=== PATIENT | female | born 1990 | race Caucasian/White ===

== ENCOUNTER 2025-03-21 00:04 | Emergency (ER) | payer OTHER ==
[~2025-03-21] VITALS: Ht 154.9 cm; Wt 57.0 kg
[2025-03-21 00:12] VITALS: O2SAT 99
[2025-03-21] MEDS: SODIUM CHLORIDE 0.9% 1,000 ML IV ONE (00:15)
[2025-03-21 00:45] VITALS: BP 112/75; PULSE 82; RESP 14; TEMP 36.7; O2SAT 99
[2025-03-21 01:38] LABS: BASOPHILS % 0.6 % (0.0-2.0); EOSINOPHILS % 2.4 % (0.0-5.0); HEMATOCRIT. 44.7 % (36.0-48.0); HEMOGLOBIN. 15.1 g/dL (12.0-16.0); LYMPHOCYTES % 22.5 % (20.0-50.0); MEAN CORPUSCULAR HEMOGLOBIN 31.6 pg (28.0-32.0); MEAN CORPUSCULAR HGB CONC 33.9 g/dL (31.0-37.0); MEAN CORPUSCULAR VOLUME 93.1 fL (81.0-99.0); MEAN PLATELET VOLUME 9.2 fl (7.4-10.4); MONOCYTES % 5.5 % (2.0-8.0); PLATELET 298 x1000/uL (130-400); WHITE BLOOD COUNT 7.9 x1000/uL (4.5-11.0)
[2025-03-21 01:56] LABS: HCG SCREEN NEGATIVE
[2025-03-21 02:13] LABS: CHLORIDE 100 mEq/L (98-107); POTASSIUM 4.1 mEq/L (3.5-5.1); SODIUM 138 mEq/L (136-145)
[2025-03-21 02:14] LABS: CARBON DIOXIDE 26 mEq/L (21-32)
[2025-03-21 02:19] LABS: CREATININE 0.9 mg/dL (0.6-1.0); GLUCOSE 92 mg/dL (70-105)
[2025-03-21 02:20] LABS: ETHANOL BLOOD < 10 mg/dL (<10); UREA NITROGEN BLOOD 13 mg/dL (9-23)
== END 2025-03-21 02:40 | disposition home or self-care (01) ==
LOC: ER 00:04
DX: F10.129 Alcohol abuse with intoxication, unspecified (principal); Y90.0 Blood alcohol level of less than 20 mg/100 ml
CPT/HCPCS: 80048; 80320; 84703; 85025; 36415; 96360; 99283; J7030; G0480